=== PATIENT | female | born 1990 | race Caucasian/White ===

== ENCOUNTER 2017-04-20 18:31 | Emergency (ER) | payer SELFPAY ==
[2017-04-20] MEDS ORDERED: HYDROcodone/Acetaminophen 10/325 mg Tablet ONE (19:37)
[2017-04-20] MEDS ORDERED: Lidocaine 1% PF 5 ML VIAL ONE (19:56)
== END 2017-04-20 20:30 | disposition home or self-care (01) ==
LOC: ERS 18:31
DX: L02.415 Cutaneous abscess of right lower limb (principal); F17.210 Nicotine dependence, cigarettes, uncomplicated
CPT/HCPCS: 10060; 99406; J2001

== ENCOUNTER 2017-08-27 20:44 | Emergency (ER) | payer SELFPAY ==
[2017-08-27] MEDS ORDERED: Ketorolac Tromethamine 30 MG/ML VIAL ONE (21:08)
[2017-08-27 21:30] LABS: Bilirubin Negative (Negative); Blood, Urine Negative (Negative); Clarity TURBID (Clear); Glucose, Urine (Dipstick) Negative (Negative); Leukocyte Moderate (Negative); Nitrite Negative (Negative); Pregnancy Test - Urine (BHCG) Negative (Negative); Pregu Control Background? CLEAR/WHITE (CLR/WHITE); Pregu Control Bar Appear? YES (CONTROL BAR); Protein, Urine (Dipstick) 30 mg/dL (Neg-Trace); pH, Urine 8.5 (5.0-9.0)
[2017-08-27 21:32] LABS: Bacteria/HPF Rare-Few HPF (None Seen); Hyaline Casts/LPF 4-6 HYALINE CAST LPF (0-3 Hyaline); Pathc Cast-AUWi Flag 0.29 (0-2.49); WBC/HPF 21-50 HPF (0-3)
== END 2017-08-27 21:52 | disposition home or self-care (01) ==
LOC: ERS 20:44
DX: N39.0 Urinary tract infection, site not specified (principal); F17.210 Nicotine dependence, cigarettes, uncomplicated
CPT/HCPCS: 81003; 81015; 81025; 87077; 87086; 87186; 96372; J1885

== ENCOUNTER 2019-07-22 13:29 | Emergency (ER) | payer SELFPAY | END 2019-07-22 14:56 | disposition home or self-care (01) | LOC: ERS 13:29 | DX: J06.9 Acute upper respiratory infection, unspecified (principal); R21 Rash and other nonspecific skin eruption; F17.210 Nicotine dependence, cigarettes, uncomplicated | CPT/HCPCS: 99283 ==

== ENCOUNTER 2022-09-06 21:22 | Emergency (ER) | payer OTHER, SELFPAY ==
[2022-09-06] MEDS ORDERED: Ketorolac Tromethamine 30 MG/ML VIAL ONE (22:38)
== END 2022-09-06 23:00 | disposition home or self-care (01) ==
LOC: ERS 21:22
DX: B34.9 Viral infection, unspecified (principal); F17.210 Nicotine dependence, cigarettes, uncomplicated
CPT/HCPCS: 96372; 99283; J1885

== ENCOUNTER 2023-06-18 17:16 | Emergency (ER) | payer OTHER, SELFPAY ==
[2023-06-18] MEDS ORDERED: Ketorolac Tromethamine 30 MG (1 mL) VIAL ONE (18:29)
[2023-06-18] MEDS ORDERED: Boostrix 0.5 ML (Tdap) VIAL (>/=7 yrs of age) ONE (18:47)
== END 2023-06-18 19:02 | disposition home or self-care (01) ==
LOC: ERS 17:16
DX: L03.116 Cellulitis of left lower limb (principal); F17.210 Nicotine dependence, cigarettes, uncomplicated; Z55.6 Problems related to health literacy; Z23 Encounter for immunization
CPT/HCPCS: 90471; 90715; J1885